=== PATIENT | male | born 1990 | race Two or more races ===

== ENCOUNTER 2024-05-12 13:24 | Emergency (ER) | payer OTHER ==
[~2024-05-12] VITALS: Ht 175.3 cm; Wt 122.5 kg
[2024-05-12] MEDS ORDERED: CEFTRIAXONE SODIUM 1,000 MG VIAL IM STA (15:08)
[2024-05-12] MEDS ORDERED: KETOROLAC TROMETHAMINE 30 MG VIAL IM STA (15:09)
[2024-05-12] MEDS ORDERED: TRAMADOL HCL 50 MG TABLET PO STA (15:09)
[2024-05-12] MEDS ORDERED: TETANUS & DIPHTHERIA TOX,ADULT 0.5 ML VIAL IM STA (15:09)
[2024-05-12] MEDS ORDERED: KETOROLAC TROMETHAMINE 30 MG VIAL ONE (16:02)
[2024-05-12] MEDS ORDERED: TETANUS DIPHTHERIA TOX. ADSOR 5 ML VIAL IM ONE (16:03)
[2024-05-12] MEDS ORDERED: CEFTRIAXONE SODIUM 1,000 MG VIAL ONE (16:03)
== END 2024-05-12 17:02 | disposition home or self-care (01) ==
LOC: ER 13:26
DX: S60.572A Other superficial bite of hand of left hand, initial encounter (principal); S60.571A Other superficial bite of hand of right hand, initial encounter; W55.01XA Bitten by cat, initial encounter; Y93.89 Activity, other specified; Y92.520 Airport as the place of occurrence of the external cause; Y99.8 Other external cause status; Z91.013 Allergy to seafood